=== PATIENT | female | born 1980 | race Caucasian/White ===

== ENCOUNTER 2021-03-02 23:01 | Emergency (ER) | payer OTHER ==
[~2021-03-02] VITALS: Ht 162.6 cm; Wt 84.3 kg
[~2021-03-02 23:01] MED LIST: CLINDAMYCIN HC300 MG PO; DICLOFENAC POTA50 MG PO; DOXYCYCLINE HY100 MG PO; ESTRADIOL2 MG PO; FUROSEMIDE20 MG PO; HYDROCODON-ACE1 EA10 PO; IBUPROFEN600 MG PO; IBUPROFEN800 MG PO; IRON325 M1 PO; MEDROXYPROGESTE10 MG PO; NAPROXEN500 MG PO; NORCO 5-325 TA1 EACH PO; PEPCID20 MG PO; PRENAISSANCE 91 EACH PO; PRILOSEC OTC20 MG PO; PRILOSEC40 MG PO; SULFAMETHOXAZO1 EAC1 PO; ULTRAM50 MG PO; VENTOLIN HFA18 GM INH
--- OUTSIDE RECORDS SUMMARY | 2021-03-02 23:08 | XMS ---
PreManage Notification: BRINA THAKKAR Security Circulator Events No recent Security Events currently on file CRITERIA MET - Group Notification CARE PROVIDERS There are no care providers on record at this time. Gabriele has no Care Guidelines for this patient. Puja VISIT COUNT (12 MO.) 1 [facility] TOTAL 1 NOTE: Visits indicate total known visits. ED/UCC VISIT TRACKING (12 MO.) 03/02/2021 23:02 [facility] [place] TYPE: Emergency COMPLAINT: - LOWER LT LEG SWELLING INPATIENT VISIT TRACKING (12 MO.) No inpatient visits to display in this time frame [id number]
[2021-03-02] MEDS ORDERED: METOPROLOL SUCC25 MG (23:22)
[2021-03-03] MEDS ORDERED: DOXYCYCLINE HY100 MG PO (00:34)
== END 2021-03-03 00:49 | disposition home or self-care (01) ==
LOC: ED 23:01
DX: L03.116 Cellulitis of left lower limb (principal); J45.909 Unspecified asthma, uncomplicated; F17.200 Nicotine dependence, unspecified, uncomplicated; Z79.899 Other long term (current) drug therapy; Z91.048 Other nonmedicinal substance allergy status
CPT/HCPCS: 99283

== ENCOUNTER 2021-04-03 00:03 | Emergency (ER) | payer OTHER ==
[~2021-04-03] VITALS: Ht 162.6 cm; Wt 84.8 kg
[~2021-04-03 00:03] MED LIST changes: +METOPROLOL SUCC25 MG
--- OUTSIDE RECORDS SUMMARY | 2021-04-03 00:10 | XMS ---
PreManage Notification: BRINA THAKKAR Security Electrician Second Events No recent Security Events currently on file CRITERIA MET - [facility] - Has Care Guidelines - Group Notification CARE PROVIDERS [facility] Internal Medicine 03/04/2021-Current PHONE: [phone] Gabriele has no Care Guidelines for this patient. Care History Medical/Surgical 03/04/2021 [facility] - Patient is currently established with [facility]. If patient is seen in the ED during business hours. Please contact CHWs at [facility]. Care Recommendation: If this patient has had 5 or more Emergency Department visits in the last 12 months.\T\nbsp; Patient will require education on the scope and purpose of the ED as an acute care provider not a Primary Care Provider and should not be utilized for chronic conditions.\T\nbsp; These are guidelines and the provider should exercise clinical judgment when providing care. 03/04/2021 [facility] Follow up visit with Dr. Douglas on 03/06/2021 E.Jen VISIT COUNT (12 MO.) 2 ALANA Duron TOTAL 2 NOTE: Visits indicate total known visits. ED/UCC VISIT TRACKING (12 MO.) 04/03/2021 00:04 [facility] [place] TYPE: Emergency COMPLAINT: - LEFT LEG PAIN 03/02/2021 23:02 [facility] [place] TYPE: Emergency COMPLAINT: - LOWER LT LEG SWELLING DIAGNOSES: - Other nonmedicinal substance allergy status - Unspecified asthma, uncomplicated - Nicotine dependence, unspecified, uncomplicated - Cellulitis of left lower limb - Other jail (current) drug therapy INPATIENT VISIT TRACKING (12 MO.) No inpatient visits to display in this time frame [id number]
== END 2021-04-03 00:28 | disposition home or self-care (01) ==
LOC: ED 00:03
DX: L03.116 Cellulitis of left lower limb (principal); K21.9 Gastro-esophageal reflux disease without esophagitis; J45.909 Unspecified asthma, uncomplicated; I10 Essential (primary) hypertension; F17.200 Nicotine dependence, unspecified, uncomplicated; Z91.048 Other nonmedicinal substance allergy status; Z79.899 Other long term (current) drug therapy
CPT/HCPCS: 99282

== ENCOUNTER 2022-03-28 23:07 | Emergency (ER) | payer OTHER ==
[~2022-03-28] VITALS: Ht 162.6 cm; Wt 79.2 kg
--- OUTSIDE RECORDS SUMMARY | 2022-03-28 23:14 | XMS ---
PreManage Notification: BRINA THAKKAR Security Marketing Secretary Events No recent Security Events currently on file CRITERIA MET - Group Notification - [facility] - Has Care Guidelines CARE PROVIDERS [facility] Internal Medicine 03/04/2021-Current PHONE: Unknown Gabriele has no Care Guidelines for this patient. Care History Medical/Surgical 04/06/2021 [facility] Patient was advised by PCP, Dr. Powell, to go to ER if he was not available. Patient stated Dr. Powell was out for a few days so she went to ER. Dr. Powell ordered abdominal ultrasound for 04/15/2021. 03/04/2021 [facility] - Patient is currently established with [facility]. If patient is seen in the ED during business hours. Please contact CHWs at [facility]. Care Recommendation: If this patient has had 5 or more Emergency Department visits in the last 12 months.\T\nbsp; Patient will require education on the scope and purpose of the ED as an acute care provider not a Primary Care Provider and should not be utilized for chronic conditions.\T\nbsp; These are guidelines and the provider should exercise clinical judgment when providing care. 03/04/2021 [facility] Follow up visit with Dr. Powell on 03/06/2021 E.DTimo VISIT COUNT (12 MO.) 2 ALANA Duron TOTAL 2 NOTE: Visits indicate total known visits. ED/UCC VISIT TRACKING (12 MO.) 03/28/2022 23:07 [facility] [place] TYPE: Emergency COMPLAINT: - ABD PAIN, NAUSEA 04/03/2021 00:04 [facility] TYPE: Emergency COMPLAINT: - LEFT LEG PAIN DIAGNOSES: - Gastro-esophageal reflux disease without esophagitis - Essential (primary) hypertension - Other nonmedicinal substance allergy status - Cellulitis of left lower limb - Other group home (current) drug therapy - Nicotine dependence, unspecified, uncomplicated - Unspecified asthma, uncomplicated INPATIENT VISIT TRACKING (12 MO.) No inpatient visits to display in this time frame [id number]
[2022-03-29] MEDS ORDERED: ONDANSETRON ODT8 MG PO (01:57)
[2022-03-29] MEDS ORDERED: PROTONIX40 MG PO (01:57)
[2022-03-29] MEDS ORDERED: HYDROCODON-ACE1 EA10 PO (01:57)
== END 2022-03-29 02:14 | disposition home or self-care (01) ==
LOC: ED 23:07
DX: R10.84 Generalized abdominal pain (principal); K21.9 Gastro-esophageal reflux disease without esophagitis; J45.909 Unspecified asthma, uncomplicated; I10 Essential (primary) hypertension; F17.200 Nicotine dependence, unspecified, uncomplicated; Z91.048 Other nonmedicinal substance allergy status; Z79.899 Other long term (current) drug therapy
CPT/HCPCS: 36415; 74177; 80053; 81001; 83690; 83735; 84703; 85025; 96375; 99284-25; A9270; J1170; J2405; J7030; Q9967

== ENCOUNTER 2022-12-22 22:47 | Emergency (ER) | payer OTHER ==
[~2022-12-22] VITALS: Ht 162.6 cm; Wt 81.7 kg
--- OUTSIDE RECORDS SUMMARY | ~2022-12-22 | XMS | Continuity of Care Document ---
Demographics + + + | Address | [address] | | | [place] [address] | + + + | Preferred Language | Unknown | + + + | Marital Status | | + + + | Congregational Affiliation | Unknown | + + + | Race | White | + + + | Ethnic Group | Not or | + + + Author + + + | Author | [facility] | + + + | Organization | [facility] | + + + | Address | [address] | | | [place] [address] | + + + | Phone | | + + + Care Team Providers + + + + | Care Line Decorator Name | Role | Phone | + + + + Unavailable | Unavailable | + + + + Unavailable | Unavailable | + + + + Allergies and Intolerances + + + + + + | date | description | facility | reaction | severity | + + + + + + | (no date) | Adhesive agent | [facility] | (no reaction) | (no severity) | | | [facility] | | | + + + + + + | (no date) | adhesive | [facility] | (no reaction) | (no severity) | + + + + + + | (no date) | Adhesive agent | [facility] | (no reaction) | (no severity) | | | | [facility] | | | + + + + + + Encounters No information. Functional Status No information. Immunizations No information. Medications + + + + | date | description | facility | + + + + | 2022-03-29 00:00 | MEDROXYPROGESTERONE | [facility] | | | ACETATE | | + + + + | 2015-12-31 00:00 | FAMOTIDINE | [facility] | + + + + | 2015-12-12 00:00 | DOXYCYCLINE HYCLATE | [facility] | + + + + | 2016-01-26 00:00 | DOXYCYCLINE HYCLATE | [facility] | + + + + | 2016-04-26 00:00 | DOXYCYCLINE HYCLATE | [facility] | + + + + | 2021-03-03 00:00 | DOXYCYCLINE HYCLATE | [facility] | + + + + | 2022-03-29 00:00 | ESTRADIOL | [facility] | + + + + | 2022-03-29 00:00 | IBUPROFEN | [facility] | + + + + | 2022-03-29 00:00 | IBUPROFEN | [facility] | + + + + | 2022-03-29 00:00 | NAPROXEN | [facility] | + + + + | 2022-03-29 00:00 | | [facility] | | | SULFAMETHOXAZOLE/TRIMETHOPR | | | | IM | | + + + + | 2022-03-29 00:00 | OMEPRAZOLE | [facility] | + + + + | 2022-03-29 00:00 | PANTOPRAZOLE SODIUM | [facility] | + + + + | 2022-03-29 00:00 | FERROUS SULFATE | [facility] | + + + + | 2022-03-29 00:00 | FUROSEMIDE | [facility] | + + + + | 2022-03-29 00:00 | ONDANSETRON | [facility] | + + + + | 2022-03-29 00:00 | OMEPRAZOLE MAGNESIUM | [facility] | + + + + | 2016-04-26 00:00 | TRAMADOL HCL | [facility] | + + + + | 2014-12-04 00:00 | HYDROCODONE | [facility] | | | BIT/ACETAMINOPHEN | | + + + + | 2022-03-29 00:00 | HYDROCODONE | [facility] | | | BIT/ACETAMINOPHEN | | + + + + | 2015-12-12 00:00 | HYDROCODONE | [facility] | | | BIT/ACETAMINOPHEN | | + + + + | 2015-12-16 00:00 | HYDROCODONE | [facility] | | | BIT/ACETAMINOPHEN | | + + + + | 2016-01-26 00:00 | HYDROCODONE | [facility] | | | BIT/ACETAMINOPHEN | | + + + + | 2022-03-29 00:00 | HYDROCODONE | [facility] | | | BIT/ACETAMINOPHEN | | + + + + Problems + + + + | date | description | facility | + + + + | 2014-12-01 00:00 | Sepsis | [facility] | + + + + | 2015-11-21 00:00 | Cat scratch of right lower | [facility] | | | leg | | + + + + | 2015-12-12 00:00 | Cellulitis of right lower | [facility] | | | extremity | | + + + + | 2015-12-31 00:00 | Gastritis | [facility] | + + + + | 2016-01-26 00:00 | Cellulitis of left lower | [facility] | | | extremity without foot | | + + + + | 2021-03-03 00:00 | Cellulitis of left lower | [facility] | | | leg | | + + + + | 2022-03-29 00:00 | Abdominal pain | [facility] | + + + + | 2022-11-23 09:00 | ENCNTR SCREEN MAMMOGRAM | [facility] | | | FOR MALIGNANT NE | | + + + + | 2022-11-23 09:05 | ENCNTR SCREEN MAMMOGRAM | [facility] | | | FOR MALIGNANT NE | | + + + + | 2022-11-23 09:05 | ENCNTR SCREEN MAMMOGRAM | [facility] | | | FOR MALIGNANT NEOPLASM OF | | | | BREAST | | + + + + Procedures No information. Results/Labs +--------+--------+ +---------+--------+---------+ | test | date | facility | value | unit | notes | +--------+--------+ +---------+--------+---------+ + + | Result panel 1 | + + + + + +--------+ + + | | 2022-03-28 | [facility] | 13.7 | (missing) | (missing) | | (unavailable | 23:25:08 | [facility] | | | | + + + +--------+ + + + + | Result panel 2 | + + + + + +--------+ + + | | 2022-03-28 | [facility] | 69.9 | (missing) | (missing) | | (unavailable | 23:25:08 | [facility] | | | | + + + +--------+ + + + + | Result panel 3 | + + + + + +--------+ + + | | 2022-03-28 | [facility] | 21.8 | (missing) | (missing) | | (unavailable | 23:25:08 | [facility] | | | | + + + +--------+ + + + + | Result panel 4 | + + + + + +-------+ + + | | 2022-03-28 | [facility] | 7.3 | (missing) | (missing) | | (unavailable | 23:25:08 | [facility] | | | | + + + +-------+ + + + + | Result panel 5 | + + + + + +-------+ + + | | 2022-03-28 | [facility] | 0.4 | (missing) | (missing) | | (unavailable | 23:25:08 | [facility] | | | | + + + +-------+ + + + + | Result panel 6 | + + + + + +-------+ + + | | 2022-03-28 | [facility] | 0.6 | (missing) | (missing) | | (unavailable | 23:25:08 | [facility] | | | | + + + +-------+ + + + + | Result panel 7 | + + + + + +--------+ + + | | 2022-03-28 | [facility] | 5.11 | (missing) | (missing) | | (unavailable | 23:25:08 | [facility] | | | | + + + +--------+ + + + + | Result panel 8 | + + + + + +--------+ + + | | 2022-03-28 | [facility] | 15.4 | (missing) | (missing) | | (unavailable | 23:25:08 | [facility] | | | | + + + +--------+ + + + + | Result panel 9 | + + + + + +-------+---------+ + | | 2022-03-28 | [facility] | 107 | mg/dL | (missing) | | (unavailable | 23:25:08 | [facility] | | | | + + + +-------+---------+ + + + | Result panel 10 | + + + + + +------+---------+ + | | 2022-03-28 | [facility] | 10 | mg/dL | (missing) | | (unavailable | 23:25:08 | [facility] | | | | + + + +------+---------+ + + + | Result panel 11 | + + + + + +--------+---------+ + | | 2022-03-28 | [facility] | 0.72 | mg/dL | (missing) | | (unavailable | 23:25:08 | [facility] | | | | + + + +--------+---------+ + + + | Result panel 12 | + + + + + +-------+ + + | | 2022-03-28 | [facility] | 106 | (missing) | (missing) | | (unavailable | 23:25:08 | [facility] | | | | + + + +-------+ + + + + | Result panel 13 | + + + + + +---------+ + + | | 2022-03-28 | [facility] | 13.88 | (missing) | (missing) | | (unavailable | 23:25:08 | [facility] | | | | + + + +---------+ + + + + | Result panel 14 | + + + + + +--------+ + + | | 2022-03-28 | [facility] | 46.6 | (missing) | (missing) | | (unavailable | 23:25:08 | [facility] | | | | + + + +--------+ + + + + | Result panel 15 | + + + + + +-------+ + + | | 2022-03-28 | [facility] | 131 | (missing) | (missing) | | (unavailable | 23::08 | [facility] | | | | + + + +-------+ + + + + | Result panel 16 | + + + + + +-------+ + + | | 2022-03-28 | [facility] | 3.9 | (missing) | (missing) | | (unavailable | 23:25:08 | [facility] | | | | + + + +-------+ + + + + | Result panel 17 | + + + + + +------+ + + | | 2022-03-28 | [facility] | 98 | (missing) | (missing) | | (unavailable | 23:25:08 | [facility] | | | | + + + +------+ + + + + | Result panel 18 | + + + + + +------+ + + | | 2022-03-28 | [facility] | 25 | (missing) | (missing) | | (unavailable | 23:25:08 | [facility] | | | | + + + +------+ + + + + | Result panel 19 | + + + + + +--------+ + + | | 2022-03-28 | [facility] | 11.9 | (missing) | (missing) | | (unavailable | 23:25:08 | [facility] | | | | + + + +--------+ + + + + | Result panel 20 | + + + + + +-------+---------+ + | | 2022-03-28 | [facility] | 9.5 | mg/dL | (missing) | | (unavailable | 23:25:08 | [facility] | | | | + + + +-------+---------+ + + + | Result panel 21 | + + + + + +-------+---------+ + | | 2022-03-28 | [facility] | 2.1 | mg/dL | (missing) | | (unavailable | 23::08 | [facility] | | | | + + + +-------+---------+ + + + | Result panel 22 | + + + + + +-------+ + + | | 2022-03-28 | [facility] | 8.1 | (missing) | (missing) | | (unavailable | 23:25:08 | [facility] | | | | + + + +-------+ + + + + | Result panel 23 | + + + + + +-------+ + + | | 2022-03-28 | [facility] | 3.4 | (missing) | (missing) | | (unavailable | ::08 | [facility] | | | | + + + +-------+ + + + + | Result panel 24 | + + + + + +-------+ + + | | 2022-03-28 | [facility] | 4.7 | (missing) | (missing) | | (unavailable | 23:25:08 | [facility] | | | | + + + +-------+ + + + + | Result panel 25 | + + + + + +--------+ + + | | 2022-03-28 | [facility] | 91.3 | (missing) | (missing) | | (unavailable | 23:25:08 | [facility] | | | | + + + +--------+ + + + + | Result panel 26 | + + + + + +--------+ + + | | 2022-03-28 | [facility] | 0.72 | (missing) | (missing) | | (unavailable | 23:25:08 | [facility] | | | | + + + +--------+ + + + + | Result panel 27 | + + + + + +-------+ + + | | 2022-03-28 | [facility] | 0.5 | (missing) | (missing) | | (unavailable | 23:25:08 | [facility] | | | | + + + +-------+ + + + + | Result panel 28 | + + + + + +------+ + + | | 2022-03-28 | [facility] | 24 | (missing) | (missing) | | (unavailable | 23:25:08 | [facility] | | | | + + + +------+ + + + + | Result panel 29 | + + + + + +------+ + + | | 2022-03-28 | [facility] | 19 | (missing) | (missing) | | (unavailable | 23:25:08 | [facility] | | | | + + + +------+ + + + + | Result panel 30 | + + + + + +-------+ + + | | 2022-03-28 | [facility] | 110 | (missing) | (missing) | | (unavailable | 23:25:08 | [facility] | | | | + + + +-------+ + + + + | Result panel 31 | + + + + + +------+ + + | | 2022-03-28 | [facility] | 75 | (missing) | (missing) | | (unavailable | 23:25:08 | [facility] | | | | + + + +------+ + + + + | Result panel 32 | + + + + + + + + + | | 2022-03-28 | [facility] | NEGATIVE | (missing) | (missing) | | (unavailable | 23:25:08 | [facility] | | | | + + + + + + + + + | Result panel 33 | + + + + + +--------+ + + | | 2022-03-28 | [facility] | 30.2 | (missing) | (missing) | | (unavailable | 23:25:08 | [facility] | | | | + + + +--------+ + + + + | Result panel 34 | + + + + + +--------+ + + | | 2022-03-28 | [facility] | 33.1 | (missing) | (missing) | | (unavailable | ::08 | [facility] | | | | + + + +--------+ + + + + | Result panel 35 | + + + + + +--------+ + + | | 2022-03-28 | [facility] | 13.9 | (missing) | (missing) | | (unavailable | 08 | [facility] | | | | + + + +--------+ + + + + | Result panel 36 | + + + + + +-------+ + + | | 2022-03-28 | [facility] | 482 | (missing) | (missing) | | (unavailable | 23:25:08 | [facility] | | | | + + + +-------+ + + + + | Result panel 37 | + + + + + + + + + | | 2022-03-28 | [facility] | YELLOW | (missing) | (missing) | | (unavailable | 23:30:08 | [facility] | | | | + + + + + + + + + | Result panel 38 | + + + + + +---------+ + + | | 2022-03-28 | [facility] | CLEAR | (missing) | (missing) | | (unavailable | 23:30:08 | [facility] | | | | + + + +---------+ + + + + | Result panel 39 | + + + + + + + + + | | 2022-03-28 | [facility] | NEGATIVE | (missing) | (missing) | | (unavailable | 23:30:08 | [facility] | | | | + + + + + + + + + | Result panel 40 | + + + + + + + + + | | 2022-03-28 | [facility] | POSITIVE | (missing) | (missing) | | (unavailable | 23:30:08 | [facility] | | | | + + + + + + + + + | Result panel 41 | + + + + + +---------+ + + | | 2022-03-28 | [facility] | TRACE | (missing) | (missing) | | (unavailable | 23:30:08 | [facility] | | | | + + + +---------+ + + + + | Result panel 42 | + + + + + + + + + | | 2022-03-28 | [facility] | >=1.030 | (missing) | (missing) | | (unavailable | 23:30:08 | [facility] | | | | + + + + + + + + + | Result panel 43 | + + + + + +---------+ + + | | 2022-03-28 | [facility] | SMALL | (missing) | (missing) | | (unavailable | 23:30:08 | [facility] | | | | + + + +---------+ + + + + | Result panel 44 | + + + + + +-------+ + + | | 2022-03-28 | [facility] | 5.5 | (missing) | (missing) | | (unavailable | 23:30:08 | [facility] | | | | + + + +-------+ + + + + | Result panel 45 | + + + + + + + + + | | 2022-03-28 | [facility] | NEGATIVE | (missing) | (missing) | | (unavailable | 23:30:08 | [facility] | | | | + + + + + + + + + | Result panel 46 | + + + + + + + + + | | 2022-03-28 | [facility] | NORMAL | (missing) | (missing) | | (unavailable | 23:30:08 | [facility] | | | | + + + + + + + + + | Result panel 47 | + + + + + + + + + | | 2022-03-28 | [facility] | NEGATIVE | (missing) | (missing) | | (unavailable | 23:30:08 | [facility] | | | | + + + + + + + + + | Result panel 48 | + + + + + + + + + | | 2022-03-28 | [facility] | NEGATIVE | (missing) | (missing) | | (unavailable | 23:30:08 | [facility] | | | | + + + + + + + + + | Result panel 49 | + + + + + +-------+ + + | | 2022-03-28 | [facility] | 2-3 | (missing) | (missing) | | (unavailable | 23:30:08 | [facility] | | | | + + + +-------+ + + + + | Result panel 50 | + + + + + +-------+ + + | | 2022-03-28 | [facility] | 0-1 | (missing) | (missing) | | (unavailable | 23:30:08 | [facility] | | | | + + + +-------+ + + + + | Result panel 51 | + + + + + + + + + | | 2022-03-28 | [facility] | NONE SEEN | (missing) | (missing) | | (unavailable | 23:30:08 | [facility] | | | | + + + + + + + + + | Result panel 52 | + + + + + + + + + | | 2022-03-28 | [facility] | NONE SEEN | (missing) | (missing) | | (unavailable | 23:30:08 | [facility] | | | | + + + + + + + + + | Result panel 53 | + + + + + +--------+ + + | | 2022-03-28 | [facility] | RARE | (missing) | (missing) | | (unavailable | 23:30:08 | [facility] | | | | + + + +--------+ + + + + | Result panel 54 | + + + + + + + + + | | 2022-03-28 | [facility] | NONE SEEN | (missing) | (missing) | | (unavailable | 23:30:08 | [facility] | | | | + + + + + + + + + | Result panel 55 | + + + + + +------+ + + | | 2022-03-28 | [facility] | No | (missing) | (missing) | | (unavailable | 23:30:08 | [facility] | | | | + + + +------+ + + + + | Result panel 56 | + + + + + + + + + | | 2022-03-28 | [facility] | CLEAN CATCH | (missing) | (missing) | | (unavailable | 23:30:08 | [facility] | | | | + + + + + + + Social History No information. Vital Signs + + + +---------+ | date | measurement | value | units | + + + +---------+ | 2022-03-28 00:00 | BMI | 30.0 | kg/m2 | + + + +---------+ | 2022-03-28 00:00 | height_metric | 162.56 | cm | + + + +---------+ | 2022-03-28 00:00 | height_standard | 64 | in | + + + +---------+ | 2022-03-28 00:00 | weight_metric | 79.2 | kg | + + + +---------+ | 2022-03-28 00:00 | weight_standard | 174.61 | lb | + + + +---------+ | 2022-03-29 00:00 | BP_diastolic | 93 | mmHg | + + + +---------+ | 2022-03-29 00:00 | BP_systolic | 149 | mmHg | + + + +---------+ | 2022-03-29 00:00 | heart_rate | 80 | /min | + + + +---------+ | 2022-03-29 00:00 | o2_saturation | 98 | % | + + + +---------+ | 2022-03-29 00:00 | respiration_rate | 18 | /min | + + + +---------+ | 2022-03-29 00:00 | temperature_metric | 36.56 | C | | | | | | + + + +---------+ | 2022-03-29 00:00 | | 97.8 | F | | | temperature_standar | | | | | d | | | + + + +---------+"
--- OUTSIDE RECORDS SUMMARY | ~2022-12-22 | XMS | Continuity of Care Document ---
Demographics + + + | Address | [address] | | | [place] [address] | + + + | Preferred Language | Unknown | + + + | Marital Status | | + + + | Shinto Affiliation | Unknown | + + + | Race | White | + + + | Ethnic Group | Not or | + + + Author + + + | Author | [facility] | + + + | Organization | [facility] | + + + | Address | [address] | | | [place] [address] | + + + | Phone | | + + + Care Team Providers + + + + | Care [employer] Accessory Installer Name | Role | Phone | + [...] + | 2022-03-29 00:00 | MEDROXYPROGESTERONE | [facility] | | | ACETATE | | + + + + | 2015-12-31 00:00 | FAMOTIDINE | [facility] | + + + + | 2015-12-12 00:00 | DOXYCYCLINE HYCLATE | [facility] | + + + + | 2016-01-26 00:00 | DOXYCYCLINE HYCLATE | [facility] | + + + + | 2016-04-26 00:00 | DOXYCYCLINE HYCLATE | [facility] | + + + + | 2021-03-03 00:00 | DOXYCYCLINE HYCLATE | [facility] | + + + + | 2022-03-29 00:00 | ESTRADIOL | [facility] | + + + + | 2022-03-29 00:00 | IBUPROFEN | [facility] | + + + + | 2022-03-29 00:00 | IBUPROFEN | [facility] | + + + + | 2022-03-29 00:00 | NAPROXEN | [facility] | + + + + | 2022-03-29 00:00 | | [facility] | | | SULFAMETHOXAZOLE/TRIMETHOPR | | | | IM | | + + + + | 2022-03-29 00:00 | OMEPRAZOLE | [facility] | + + + + | 2022-03-29 00:00 | PANTOPRAZOLE SODIUM | [facility] | + + + + | 2022-03-29 00:00 | FERROUS SULFATE | [facility] | + + + + | 2022-03-29 00:00 | FUROSEMIDE | [facility] | + + + + | 2022-03-29 00:00 | ONDANSETRON | [facility] | + + + + | 2022-03-29 00:00 | OMEPRAZOLE MAGNESIUM | [facility] | + + + + | 2016-04-26 00:00 | TRAMADOL HCL | [facility] | + + + + | 2014-12-04 00:00 | HYDROCODONE | [facility] | | | BIT/ACETAMINOPHEN | | + + + + | 2022-03-29 00:00 | HYDROCODONE | [facility] | | | BIT/ACETAMINOPHEN | | + + + + | 2015-12-12 00:00 | HYDROCODONE | [facility] | | | BIT/ACETAMINOPHEN | | + + + + | 2015-12-16 00:00 | HYDROCODONE | [facility] | | | BIT/ACETAMINOPHEN | | + + + + | 2016-01-26 00:00 | HYDROCODONE | [facility] | | | BIT/ACETAMINOPHEN | | + + + + | 2022-03-29 00:00 | HYDROCODONE | [facility] | | | BIT/ACETAMINOPHEN | | + + + + Problems + + + + | date | description | facility | + + + + | 2014-12-01 00:00 | Sepsis | [facility] | + + + + | 2015-11-21 00:00 | Cat scratch of right lower | [facility] | | | leg | | + + + + | 2015-12-12 00:00 | Cellulitis of right lower | [facility] | | | extremity | | + + + + | 2015-12-31 00:00 | Gastritis | [facility] | + + + + | 2016-01-26 00:00 | Cellulitis of left lower | [facility] | | | extremity without foot | | + + + + | 2021-03-03 00:00 | Cellulitis of left lower | [facility] | | | leg | | + + + + | 2022-03-29 00:00 | Abdominal pain | [facility] | + + + + | 2022-11-23 [...] (missing) | | (unavailable | 23:25:08 | [place] | | | | | ) | [...] (missing) | | (unavailable | 23:25:08 | [place] | | | | | ) | [...]
[~2022-12-22 22:47] MED LIST changes: +ONDANSETRON ODT8 MG PO; +PROTONIX40 MG PO
--- OUTSIDE RECORDS SUMMARY | 2022-12-22 22:51 | XMS ---
PreManage Notification: BRINA THAKKAR Security Personal Financial Advisor Events No recent Security Events currently on file CRITERIA MET - Group Notification CARE PROVIDERS [facility] Internal Medicine 03/04/2021-Current PHONE: Unknown -, [place]- Dentist: [facility] PHONE: [phone] Gabriele has no Care Guidelines for this patient. Care History Medical/Surgical 04/06/2021 [facility] Patient was advised by PCP, Dr. Powell, to go to ER if he was not available. Patient stated Dr. Powell was out for a few days so she went to ER. Dr. Powell ordered abdominal ultrasound for 04/15/2021. 03/04/2021 [facility] - Patient is currently established with [facility]. If patient is seen in the ED during business hours. Please contact CHWs at [facility]. Care Recommendation: If this patient has had 5 or more Emergency Department visits in the last 12 months.\T\nbsp; Patient will require education on the scope and purpose of the ED as an acute care provider not a Primary Care Provider and should not be utilized for chronic conditions.\T\nbsp; These are guidelines and the provider should exercise clinical judgment when providing care. 03/04/2021 [facility] Follow up visit with Dr. Powell on 03/06/2021 Puja VISIT COUNT (12 MO.) 2 [facility] Pinky TOTAL 2 NOTE: Visits indicate total known visits. ED/UCC VISIT TRACKING (12 MO.) [facility] COMPLAINT: - RT LEG SWELLING 03/28/2022 23:07 [facility] [place] TYPE: Emergency COMPLAINT: - ABD PAIN, NAUSEA DIAGNOSES: - Essential (primary) hypertension - Gastro-esophageal reflux disease without esophagitis - Generalized abdominal pain - Nicotine dependence, unspecified, uncomplicated - Other residential (current) drug therapy - Other nonmedicinal substance allergy status - Unspecified abdominal pain - Unspecified asthma, uncomplicated INPATIENT VISIT TRACKING (12 MO.) No inpatient visits to display in this time frame [id number]
[2022-12-22 23:27] LABS: BASOPHILS 0.4 % (0-2); EOSINOPHILS 0.9 % (0-6); HEMOGLOBIN 11.3 g/dL (12.0-18.0); LYMPHOCYTES 15.9 % (24-44); MCHC 32.4 g/dl (30-36); MCV 83.1 fl (81-99); MONOCYTES 8.3 % (0-12); NEUTROPHILS 74.5 % (39-80); PLATELET COUNT 370 K/uL (140-440); RBC 4.21 M/ul (4.3-5.7); RDW 14.3 (10.5-15.0)
[2022-12-22] MEDS ORDERED: DOXYCYCLINE HY100 MG PO (23:42)
[2022-12-22 23:44] LABS: ALBUMIN 2.7 g/dL (3.4-5.0); ALBUMIN/GLOBULIN RATIO 0.61 (1.1-2.4); ANION GAP 8.3 (7-21); BILIRUBIN, TOTAL 0.3 ng/dL (0.2-1.0); BUN/CREATININE RATIO 13.15 (6.0-28.6); CALCIUM 8.9 mg/dL (8.5-10.1); CREATININE, SERUM 0.76 mg/dL (0.55-1.02); POTASSIUM 3.3 mmol/L (3.5-5.1); PROTEIN, TOTAL 7.1 g/dL (6.4-8.2)
[2022-12-23 00:04] VITALS: BP 145/66
== END 2022-12-23 | disposition home or self-care (01) ==
LOC: ED 22:47
PROVIDERS: Internal Medicine
DX: L03.115 Cellulitis of right lower limb (principal); K21.9 Gastro-esophageal reflux disease without esophagitis; J45.909 Unspecified asthma, uncomplicated; I10 Essential (primary) hypertension; F17.200 Nicotine dependence, unspecified, uncomplicated; Z91.048 Other nonmedicinal substance allergy status; Z79.899 Other long term (current) drug therapy
CPT/HCPCS: 36415; 80053; 85025; 85379; 99283

== ENCOUNTER 2023-04-13 23:44 | Emergency (ER) | payer OTHER ==
[~2023-04-13] VITALS: Ht 162.6 cm; Wt 78.2 kg
[2023-04-14 01:36] VITALS: BP 154/80
== END 2023-04-14 01:41 | disposition home or self-care (01) ==
LOC: ED 23:44
DX: J02.8 Acute pharyngitis due to other specified organisms (principal); F17.200 Nicotine dependence, unspecified, uncomplicated; Z91.09 Other allergy status, other than to drugs and biological substances; Z79.899 Other long term (current) drug therapy
CPT/HCPCS: 87651; 99283; A9270

== ENCOUNTER 2024-08-16 20:17 | Emergency (ER) | payer OTHER ==
[~2024-08-16] VITALS: Ht 162.6 cm; Wt 72.5 kg
[2024-08-16] MEDS ORDERED: methylPREDNISolone SOD SUCC 125 MG/2 ML VIAL IV ONE (20:30)
[2024-08-16] MEDS ORDERED: ALBUTEROL/IPRATROPIUM 3 ML NEB INH ONE (20:30)
[2024-08-16] MEDS ORDERED: VENTOLIN HFA18 GM INH (20:33)
[2024-08-16 21:05] LABS: HEMATOCRIT 23.2 % (35.0-50.0); HEMOGLOBIN 6.8 g/dL (12.0-18.0); MCH 16.8 (27-36); MCHC 29.3 g/dl (30-36); MCV 57.5 fl (81-99); PLATELET COUNT 418 K/uL (140-440); RBC 4.03 M/ul (4.3-5.7); RDW 20.8 (10.5-15.0)
[2024-08-16 21:24] LABS: EOSINOPHILS, MANUAL DIFF 1; LYMPHOCYTES, MANUAL DIFF 19; NEUTROPHILS, MANUAL DIFF 80
[2024-08-16 21:25] LABS: ALBUMIN 2.9 g/dL (3.4-5.0); ALBUMIN/GLOBULIN RATIO 0.78 (1.1-2.4); ANION GAP 11.3 (7-21); BILIRUBIN, TOTAL 0.6 mg/dL (0.2-1.0); BUN/CREATININE RATIO 10.81 (6.0-28.6); CALCIUM 8.5 mg/dL (8.5-10.1); CREATININE, SERUM 0.74 mg/dL (0.55-1.02); POTASSIUM 3.3 mmol/L (3.5-5.1); PROTEIN, TOTAL 6.6 g/dL (6.4-8.2)
[2024-08-16 22:02] LABS: ABO O; RH POSITIVE
[2024-08-16 22:46] LABS: ABO O; ANTIBODY SCREEN NEGATIVE; RH POSITIVE
[2024-08-16 22:47] LABS: IS CROSSMATCH COMPATIBLE
[2024-08-16] MEDS ORDERED: LIDOCAINE 2% VISCOUS 6 ML SYR TOP ONE (23:45)
[2024-08-17] MEDS ORDERED: FUROSEMIDE 20 MG/2 ML VIAL IV ONE (01:00)
[2024-08-17] MEDS ORDERED: COLACE100 MG PO (01:28)
[2024-08-17] MEDS ORDERED: VITAMIN C500 M1 PO (01:28)
[2024-08-17] MEDS ORDERED: FERROUS SULFAT325 M2 PO (01:28)
[2024-08-17] MEDS ORDERED: ALBUTEROL2.5 MG/3 M INH (02:37)
[2024-08-17] MEDS ORDERED: INHALER, ASSIST DEVICES 1 EACH SPACER MISC ONE (02:45)
[2024-08-17] MEDS ORDERED: ALBUTEROL SULFATE 8 GM HOME.PACK INH ONE (02:45)
[2024-08-17] MEDS ORDERED: methylPREDNISolone 4 MG HOME.PACK PO ONE (02:45)
[2024-08-17] MEDS ORDERED: ALBUTEROL SULFATE 0.083% 3 ML HOME.PACK INH PRN (02:45)
[2024-08-17 03:00] VITALS: BP 147/78
== END 2024-08-17 03:00 | disposition home or self-care (01) ==
LOC: ED 20:17
PROVIDERS: Family Medicine
DX: D50.9 Iron deficiency anemia, unspecified (principal); N92.0 Excessive and frequent menstruation with regular cycle; J45.909 Unspecified asthma, uncomplicated; K21.9 Gastro-esophageal reflux disease without esophagitis; I10 Essential (primary) hypertension; F17.200 Nicotine dependence, unspecified, uncomplicated; Z91.048 Other nonmedicinal substance allergy status
CPT/HCPCS: 36415; 36430; 51702; 71045; 80053; 83880; 85025; 86850; 86900; 86901; 86922; 94640; 94664; 99285-25; J1938; J2919; P9016

== ENCOUNTER 2024-08-19 16:26 | Inpatient (IN) | payer OTHER ==
[~2024-08-19] VITALS: Ht 162.6 cm; Wt 67.5 kg
[~2024-08-19 16:26] MED LIST changes: +ALBUTEROL2.5 MG/3 M INH; +COLACE100 MG PO; +FERROUS SULFAT325 M2 PO; +VITAMIN C500 M1 PO
[2024-08-19] MEDS ORDERED: ALBUTEROL/IPRATROPIUM 3 ML NEB INH PRN (17:00)
[2024-08-19 17:10] LABS: BASOPHILS 0.3 % (0-2); EOSINOPHILS 0.1 % (0-6); HEMOGLOBIN 9.1 g/dL (12.0-18.0); LYMPHOCYTES 9.4 % (24-44); MCH 19.2 (27-36); MCHC 30.4 g/dl (30-36); MCV 63.2 fl (81-99); MONOCYTES 4.4 % (0-12); NEUTROPHILS 85.8 % (39-80); PLATELET COUNT 448 K/uL (140-440); RBC 4.75 M/ul (4.3-5.7); RDW 28.9 (10.5-15.0)
[2024-08-19 17:28] LABS: ALBUMIN 2.7 g/dL (3.4-5.0); ALBUMIN/GLOBULIN RATIO 0.73 (1.1-2.4); ANION GAP 9.2 (7-21); BILIRUBIN, TOTAL 0.5 mg/dL (0.2-1.0); BUN/CREATININE RATIO 11.42 (6.0-28.6); CALCIUM 8.5 mg/dL (8.5-10.1); CREATININE, SERUM 0.7 mg/dL (0.55-1.02); MAGNESIUM 1.7 mg/dL (1.8-2.4); POTASSIUM 3.2 mmol/L (3.5-5.1); PROTEIN, TOTAL 6.4 g/dL (6.4-8.2)
[2024-08-19] MEDS ORDERED: AZITHROMYCIN 250 MG TAB PO ONE (19:45)
[2024-08-19 20:27] LABS: INFLUENZA B NAA NEGATIVE (NEGATIVE); RESPIRATORY SYNCYTIAL VIR NAA NEGATIVE (NEGATIVE)
[2024-08-19] MEDS ORDERED: FUROSEMIDE 40 MG/4 ML VIAL IV ONE (21:30)
[2024-08-19] MEDS ORDERED: POTASSIUM CHLORIDE 10 MEQ TABCR PO ONE (21:30)
[2024-08-19] MEDS ORDERED: ALBUTEROL/IPRATROPIUM 3 ML NEB INH ONE (21:30)
[2024-08-19] MEDS ORDERED: DEXAMETHASONE SOD PHOS 10 MG/ML VIAL IV ONE (21:30)
[2024-08-19] MEDS ORDERED: CEFTRIAXONE SODIUM 2 GM in SODIUM CHLORIDE 0.9% 100 ML IV ONE (21:45)
[2024-08-19] MEDS ORDERED: ACETAMINOPHEN 325 MG TAB PO PRN (22:15)
[2024-08-19] MEDS ORDERED: ondansetron HCL 4 MG/2 ML VIAL IV PRN (22:15)
[2024-08-19 22:21] LABS: LACTIC ACID, BLOOD 1.4 mmol/L (0.4-2.0)
[2024-08-19 22:40] VITALS: BP 103/74
[2024-08-19 22:42] VITALS: BP 103/74
[2024-08-20] VITALS (8 sets, daily range): BP systolic 115–152; BP diastolic 55–73
[2024-08-20 05:54] LABS: HEMATOCRIT 31.8 % (35.0-50.0); HEMOGLOBIN 9.8 g/dL (12.0-18.0); MCH 19.5 (27-36); MCHC 30.9 g/dl (30-36); MCV 63.2 fl (81-99); PLATELET COUNT 507 K/uL (140-440); RBC 5.03 M/ul (4.3-5.7); RDW 29.8 (10.5-15.0)
[2024-08-20 06:08] LABS: ALBUMIN 3.1 g/dL (3.4-5.0); ALBUMIN/GLOBULIN RATIO 0.74 (1.1-2.4); ANION GAP 10.3 (7-21); BILIRUBIN, TOTAL 0.5 mg/dL (0.2-1.0); BUN/CREATININE RATIO 14.51 (6.0-28.6); CALCIUM 9.3 mg/dL (8.5-10.1); CREATININE, SERUM 0.62 mg/dL (0.55-1.02); MAGNESIUM 2.1 mg/dL (1.8-2.4); POTASSIUM 4.3 mmol/L (3.5-5.1); PROTEIN, TOTAL 7.3 g/dL (6.4-8.2)
[2024-08-20 06:13] LABS: LYMPHOCYTES, MANUAL DIFF 5; NEUTROPHILS, MANUAL DIFF 95
[2024-08-20] MEDS ORDERED: ALBUTEROL/IPRATROPIUM 3 ML NEB INH SCH (08:00)
[2024-08-20] MEDS ORDERED: OMEPRAZOLE20 MG PO (08:11)
[2024-08-20] MEDS ORDERED: NICOTINE 21 MG/24 HR 1 EA TDSY TD SCH (11:10)
[2024-08-20] MEDS ORDERED: ENOXAPARIN SODIUM 40 MG/0.4 ML SYR SUB-Q SCH (11:10)
[2024-08-20] MEDS ORDERED: PANTOPRAZOLE SODIUM 40 MG TABEC PO SCH (11:10)
[2024-08-20] MEDS ORDERED: predniSONE 20 MG TAB PO SCH (11:13)
[2024-08-20] MEDS ORDERED: AZITHROMYCIN 250 MG TAB PO SCH (11:13)
[2024-08-20] MEDS ORDERED: CEFTRIAXONE SODIUM 2 GM in SODIUM CHLORIDE 0.9% 100 ML IV SCH (11:15)
[2024-08-20] MEDS ORDERED: bisacodyL 10 MG SUPP PR PRN (11:15)
[2024-08-20] MEDS ORDERED: ACETAMINOPHEN 325 MG TAB PO PRN (11:15)
[2024-08-20] MEDS ORDERED: NICOTINE POLACRILEX 4 MG LOZENGE BUCCAL PRN (11:15)
[2024-08-20] MEDS ORDERED: ondansetron HCL 4 MG/2 ML VIAL IV PRN (11:15)
[2024-08-20] MEDS ORDERED: PHARMACY RENAL DOSE ADJUSTMENT 1 DOSE MISC PO SCH (12:00)
--- NOTE | 2024-08-20 20:11 | EKG ---
[facility] [address] [facility] [place] [address] Signed Normal sinus rhythm Possible Left atrial enlargement Minimal voltage criteria for LVH, may be normal variant ( Sokolow-Duran ) Anterior infarct , age undetermined Abnormal ECG When compared with ECG of 15-FEB-2016 16:20, Anterior infarct is now present Confirmed by Jhony Brown DO ([id number]) on 08/20/2024 8:11:24 PM Electronically Signed By: JHONY BROWN DO 08/20/242010 PATIENT NAME: BRINA THAKKAR Electrocardiogram DATE OF : 78 PHYSICIAN: JHONY BROWN DO REPORT #: [id number] REPORT IS CONFIDENTIAL AND NOT TO BE RELEASED WITHOUT AUTHORIZATION
[2024-08-20] MEDS ORDERED: MELATONIN 3 MG TAB PO PRN (21:00)
[2024-08-21] VITALS (9 sets, daily range): BP systolic 100–1147; BP diastolic 50–64
[2024-08-21 05:17] LABS: ERYTHROPOIETIN 87 mU/mL (4-27)
[2024-08-21 05:25] LABS: BASOPHILS 0.2 % (0-2); HEMATOCRIT 30.8 % (35.0-50.0); HEMOGLOBIN 9.3 g/dL (12.0-18.0); LYMPHOCYTES 13.4 % (24-44); MCH 19.1 (27-36); MCHC 30.2 g/dl (30-36); MCV 63.2 fl (81-99); MONOCYTES 6.6 % (0-12); NEUTROPHILS 79.8 % (39-80); PLATELET COUNT 541 K/uL (140-440); RBC 4.86 M/ul (4.3-5.7); RDW 28.5 (10.5-15.0)
[2024-08-21 05:46] LABS: ALBUMIN 2.7 g/dL (3.4-5.0); ALBUMIN/GLOBULIN RATIO 0.73 (1.1-2.4); ANION GAP 8.1 (7-21); BILIRUBIN, TOTAL 0.4 mg/dL (0.2-1.0); BUN/CREATININE RATIO 21.87 (6.0-28.6); CALCIUM 9.1 mg/dL (8.5-10.1); CREATININE, SERUM 0.64 mg/dL (0.55-1.02); MAGNESIUM 2.1 mg/dL (1.8-2.4); POTASSIUM 4.1 mmol/L (3.5-5.1); PROTEIN, TOTAL 6.4 g/dL (6.4-8.2)
[2024-08-21 08:46] LABS: IRON BINDING CAPACITY TOTAL 360 ug/dL (240-450); IRON,SERUM OR PLASMA 14 ug/dL (28-170); TRANSFERRIN SATURATION 4 %sat (20-50)
[2024-08-21] MEDS ORDERED: FUROSEMIDE 20 MG/2 ML VIAL IV ONE (11:00)
[2024-08-22 05:29] LABS: BASOPHILS 0.5 % (0-2); EOSINOPHILS 0.2 % (0-6); HEMATOCRIT 28.7 % (35.0-50.0); HEMOGLOBIN 8.9 g/dL (12.0-18.0); LYMPHOCYTES 28.2 % (24-44); MCH 19.7 (27-36); MCV 63.5 fl (81-99); MONOCYTES 8.9 % (0-12); NEUTROPHILS 62.2 % (39-80); PLATELET COUNT 504 K/uL (140-440); RBC 4.52 M/ul (4.3-5.7); RDW 29.8 (10.5-15.0)
[2024-08-22 05:45] LABS: ALBUMIN 2.6 g/dL (3.4-5.0); ALBUMIN/GLOBULIN RATIO 0.76 (1.1-2.4); ANION GAP 7.1 (7-21); BILIRUBIN, TOTAL 0.4 mg/dL (0.2-1.0); BUN/CREATININE RATIO 28.12 (6.0-28.6); CALCIUM 8.7 mg/dL (8.5-10.1); CREATININE, SERUM 0.64 mg/dL (0.55-1.02); MAGNESIUM 1.9 mg/dL (1.8-2.4); POTASSIUM 4.1 mmol/L (3.5-5.1)
[2024-08-22 05:52] VITALS: BP 134/57
[2024-08-22 06:11] VITALS: BP 134/57
[2024-08-22] MEDS ORDERED: SODIUM CHLORIDE 0.9% IV ONE (07:45)
[2024-08-22] MEDS ORDERED: FERUMOXYTOL IV ONE (07:45)
[2024-08-22 10:01] VITALS: BP 110/48
[2024-08-22 10:11] VITALS: BP 110/48
[2024-08-22] MEDS ORDERED: PREDNISONE20 MG PO (12:15)
[2024-08-22] MEDS ORDERED: CEFDINIR300 MG PO (12:16)
[2024-08-22] MEDS ORDERED: DULERA 50 MCG-513 GM INH (12:17)
== END 2024-08-22 13:55 | disposition home or self-care (01) | DRG 811 ==
LOC: ED 16:26 → MS 16:28
PROVIDERS: Emergency Medicine; Internal Medicine; ADMIT Student in an Organized Health Care Education/Training Program; ATTEND Student in an Organized Health Care Education/Training Program
DX: D50.9 Iron deficiency anemia, unspecified (principal); J96.01 Acute respiratory failure with hypoxia; J44.1 Chronic obstructive pulmonary disease with (acute) exacerbation; I11.0 Hypertensive heart disease with heart failure; D56.1 Beta thalassemia; K21.9 Gastro-esophageal reflux disease without esophagitis; J45.909 Unspecified asthma, uncomplicated; F17.210 Nicotine dependence, cigarettes, uncomplicated; F12.90 Cannabis use, unspecified, uncomplicated; I50.9 Heart failure, unspecified; D72.829 Elevated white blood cell count, unspecified; D75.839 Thrombocytosis, unspecified; D72.0 Genetic anomalies of leukocytes; K42.9 Umbilical hernia without obstruction or gangrene; R13.10 Dysphagia, unspecified; Z98.890 Other specified postprocedural states; Z90.89 Acquired absence of other organs; Z98.51 Tubal ligation status; Z91.048 Other nonmedicinal substance allergy status; Z79.899 Other long term (current) drug therapy; Z79.51 Long term (current) use of inhaled steroids
CPT/HCPCS: 36415; 70491; 71045; 71260; 74160; 74230; 80053; 82668; 82728; 83550; 83605; 83735; 83880; 84484; 84703; 85025; 85060; 85379; 86140; 87502; 92526; 92610; 92611; 93005; 93010; 93306; 94640; 94667; 94668; 94760; 94761; 94762; 99285-25; 99406; A9270; J0696; J1100; J1650; J1938; J7512; Q0138; Q9967; U0002

== ENCOUNTER 2024-09-24 12:31 | Day surgery (SDC) | payer OTHER ==
[~2024-09-24] VITALS: Ht 162.6 cm; Wt 70.9 kg
[~2024-09-24 12:31] MED LIST changes: +CEFDINIR300 MG PO; +DULERA 50 MCG-513 GM INH; +IBLOOD GLUCOSE TEST STRIP 1 EA TEST VI PRN; +LACTATED RINGER'S 1,000 ML IV SCH; +LIDOCAINE HCL 1% 5 ML SDV INJ ONE; +LIDOCAINE HCL 4% 50 ML BTL TOP SCH; +MIDAZOLAM HCL 5 MG/5 ML VIAL IV PRN; +OMEPRAZOLE20 MG PO; +PREDNISONE20 MG PO; +fentaNYL citrate 100 MCG/2 ML VIAL IV PRN
[2024-09-24 12:48] VITALS: BP 186/88
[2024-09-24] MEDS ORDERED: fentaNYL citrate 100 MCG/2 ML VIAL ONE (13:34)
[2024-09-24] MEDS ORDERED: MIDAZOLAM HCL 5 MG/5 ML VIAL ONE (13:34)
--- NOTE | 2024-09-24 14:28 | NUR ---
09/24/24 1428 Lauren Hatch PATIENT'S OXYGEN SATURATION 100% ON 3L VIA NC. OXYGEN TURNED OFF AT THIS TIME. SNORING RESPIRATIONS HEARD.
[2024-09-24 15:16] VITALS: BP 178/72
--- NOTE | 2024-09-25 09:59 | OR ---
[facility] [address] [place], [place] [address] Signed DATE OF OPERATION: 09/24/2024 SURGEON: Tobin Garner MD PREOPERATIVE DIAGNOSIS: Longstanding cervical dysphagia. POSTOPERATIVE DIAGNOSES: No evidence of distinct stricture or evidence of eosinophilic esophagitis; moderate-size hiatal hernia. PROCEDURE PERFORMED: Esophagogastroduodenoscopy with biopsy. ANESTHESIA: Intravenous sedation, fentanyl 100 mcg, Versed 4 mg. INDICATION: This 44-year-old woman is a patient of Jennifer Pope MD. She has had 10 years of increasing "choking" when she tries to swallow food. This has been going on probably up to 10 years overall. She was admitted to the hospital on August 20 with shortness of breath and exacerbation of COPD. At that time, she is anemic with a hemoglobin of 6.8, prompting blood transfusion. She was likely anemic related to menorrhagia issues. She continues to smoke, though she does have COPD/asthma type problems. A CT angiogram of the chest was performed showing no evidence of embolism or pneumonia. It was considered possibility of a mesenteric shunt based on anatomy. The patient did undergo an upper GI for cervical dysphagia performed on August 21, 2024 showing a prolonged oral phase; pharyngeal phase, well maintained; and some retrograde flow within the upper esophagus below the upper esophageal sphincter. There is no actual web or stricture. She is admitted at this time to undergo upper endoscopy to assess for stricture or other anatomic findings that would account for cervical dysphagia. FINDINGS: There is no lesion to account for the dysphagia. Certainly, no stricture or neoplasm. There was a large hiatal hernia associated. The stomach and duodenum were essentially normal. CLOtest was negative 15 minutes post procedure. DESCRIPTION OF PROCEDURE: Electronically Signed By: TOBIN GARNER MD 09/25/24 0959 PATIENT NAME: BRINA THAKKAR OPERATIVE REPORT DATE OF : [birth year] REPORT #: [id number] PHYSICIAN: TOBIN GARNER MD PCP: JENNIFER POPE MD REPORT IS CONFIDENTIAL AND NOT TO BE RELEASED WITHOUT AUTHORIZATION [facility] [address] [place], [place] [address] Signed The patient was brought to the endoscopy suite and placed in lateral decubitus position, given intravenous sedation to the point of slurred speech and nystagmus. Full cardiopulmonary monitoring was maintained. A bite block was placed. An Olympus video upper endoscope was passed in the hypopharynx. The vocal cords appeared normal. The scope was advanced to the esophagus with minor delay in the most proximal esophagus, but ultimately into the esophagus without problem, past the stomach. The stomach and duodenum appeared normal except for a hiatal hernia on retroflexed view. Biopsies taken of the duodenum and the antrum for both EITAN and pathologic testing. The scope was withdrawn to the distal esophagus. There was no evidence of actual stricture or even inflammation, and certainly, no Alcaraz epithelium. Biopsies were obtained. Scope was withdrawn, and biopsies were taken of the midesophagus to assess for eosinophilic esophagitis and in the most proximal esophagus as well. There was a scrape in the most proximal aspect of the esophagus as it joins hypopharynx upon passage of the scope. There did not appear to be an actual stricture in the area however. The patient was taken to the recovery room in good condition. CONCLUDING DIAGNOSIS: No actual definite stricture. We will review her pathology reports particularly to assess for occult eosinophilic esophagitis, which certainly can manifest as dysphagia. My review of her upper GI does not show any particular finding of note in the proximal esophagus that would account for cervical dysphagia. A barium study that was performed on August 21 was done primarily to rule out aspiration and assess for swallowing safety. The pharyngeal phase was maintained and all trial boluses were cleared, it is noted. I would recommend she continue with her PPI medication daily. She should absolutely stop smoking. She will return to the ongoing care of her primary provider, Jennifer Pope. Tobin Garner MD JM/MODL /[id number] cc: Jennifer Pope Electronically Signed By: TOBIN GARNER MD 09/25/24 0959 PATIENT NAME: BRINA THAKKAR OPERATIVE REPORT DATE OF : 78 REPORT #: [id number] PHYSICIAN: TOBIN GARNER MD PCP: JENNIFER POPE MD REPORT IS CONFIDENTIAL AND NOT TO BE RELEASED WITHOUT AUTHORIZATION [facility] [address] [facility] [place] [address] Signed Copies: ~ Electronically Signed By: TOBIN GARNER MD 09/25/24 0959 PATIENT NAME: BRINA THAKKARLAKEKAVITA OPERATIVE REPORT DATE OF : 78 REPORT #: [id number] PHYSICIAN: TOBIN GARNER MD PCP: JENNIFER POPE MD REPORT IS CONFIDENTIAL AND NOT TO BE RELEASED WITHOUT AUTHORIZATION
--- NOTE | 2024-09-26 14:09 | PATH ---
[facility] [address] [place], [place] [address] Signed SPECIMEN(S): A DUODENAL BIOPSY SPECIMEN(S): B ANTRUM BIOPSY SPECIMEN(S): C LOWER ESOPHAGEAL BIOPSY SPECIMEN(S): D MIDDLE ESOPHAGEAL BIOPSY SPECIMEN(S): E UPPER ESOPHAGEAL BIOPSY SPECIMEN SOURCE: A. DUODENAL BIOPSY B. ANTRUM BIOPSY C. LOWER ESOPHAGEAL BIOPSY D. MIDDLE ESOPHAGEAL BIOPSY E. UPPER ESOPHAGEAL BIOPSY CLINICAL HISTORY: GERD, esophageal web, cervical dysphagia, hiatal hernia, mild proximal inflammation FINAL PATHOLOGIC DIAGNOSIS: A. Duodenum, biopsy: - Small bowel mucosa with intact villous architecture. - Negative for intraepithelial lymphocytosis, parasites, or malignancy. B. Antrum, biopsy: - Minimal nonspecific chronic gastritis. - Negative for Helicobacter pylori by HE. - Negative for intestinal metaplasia, dysplasia, or malignancy. C. Lower esophagus, biopsies: - Gastric cardia and squamous mucosa with mild reflux-associated change and focal goblet cell metaplasia. - Negative for dysplasia or malignancy. - See Comment. D. Middle esophagus, biopsies: - Fragments of superficial squamous mucosa with no significant histopathologic changes. - Negative for eosinophilic esophagitis, dysplasia, or malignancy. E. Upper esophagus, biopsies: - Fragments of superficial squamous mucosa with no significant histopathologic changes. - Negative for eosinophilic esophagitis, dysplasia, or malignancy. COMMENT: Part C) If the biopsy is derived from endoscopically abnormal mucosa in the PATIENT NAME: MAYKEL MURRAYLizzy GARNER PATHOLOGY DATE OF : 78 REPORT #: [id number] PHYSICIAN: [facility] PCP: ANGELIA POPE MD REPORT IS CONFIDENTIAL AND NOT TO BE RELEASED WITHOUT AUTHORIZATION [facility] [address] [place], [place] [address] Signed tubular esophagus, then the findings meet the ACG Diagnostic Criteria for Alcaraz's esophagus. Otherwise, this is considered intestinal metaplasia at the gastroesophageal junction. Clinical and endoscopic correlation is recommended. DWS:smn MICROSCOPIC EXAMINATION: Histologic sections of all submitted blocks are examined by light microscopy. These findings, together with the gross examination, support the pathologic diagnosis. GROSS DESCRIPTION: A. The specimen, labeled and designated "Murray, duodenal biopsy," is received in formalin and consists of two osborn soft tissue fragments, ranging from 0.2-0.9 cm. Entirely submitted in (A1). B. The specimen, labeled and designated "Murray, antrum biopsy," is received in formalin and consists of two osborn soft tissue fragments, ranging from 0.4-0.6 cm. Entirely submitted in (B1). C. The specimen, labeled and designated "Murray, lower esophageal biopsy," is received in formalin and consists of two osborn soft tissue fragments, ranging from 0.1-0.6 cm. Entirely submitted in (C1). D. The specimen, labeled and designated "Murray, middle esophageal biopsy," is received in formalin and consists of four osborn soft tissue fragments, ranging from 0.2-0.4 cm. Entirely submitted in (D1). E. The specimen, labeled and designated "Murray, upper esophageal biopsy," is received in formalin and consists of two osborn soft tissue fragments, ranging from 0.3-0.6 cm. Entirely submitted in (E1). VB (under the direct supervision of a pathologist) The Gross Description was prepared using a voice recognition system. The report was reviewed for accuracy; however, sound-alike word errors, addition and/or deletions may occur. If there is any question about this report, please contact Client Services. PERFORMING LABORATORY: Technical component was performed by [facility], [facility] [place] [address] (CLIA# [id number]). Professional interpretation was performed by [facility], [address] [facility] [place] [address] (CLIA#: [id number]). Diagnostician: He Cain MD Pathologist PATIENT NAME: BRINA MURRAY PATHOLOGY DATE OF : [birth year] REPORT #: [id number] PHYSICIAN: [facility] PATHOLOG[facility] PCP: ANGELIA POPE MD REPORT IS CONFIDENTIAL AND NOT TO BE RELEASED WITHOUT AUTHORIZATION [facility] [address] [place], [place] [address] Signed Electronically Signed 09/26/2024 Copies: ~ PATIENT NAME: BRINA MURRAY PATHOLOGY DATE OF : [birth year] REPORT #: [id number] PHYSICIAN: PASTORA HUNTLEY PCP: ANGELIA POPE MD REPORT IS CONFIDENTIAL AND NOT TO BE RELEASED WITHOUT AUTHORIZATION
== END 2024-09-24 15:25 | disposition home or self-care (01) ==
LOC: DS 12:31
PROVIDERS: ATTEND Surgery
PROC: 0DB68ZX Excision of Stomach, Via Natural or Artificial Opening Endoscopic, Diagnostic (ICD-10-PCS; 2024-09-24)
PROC: 0DB18ZX Excision of Upper Esophagus, Via Natural or Artificial Opening Endoscopic, Diagnostic (ICD-10-PCS; 2024-09-24)
PROC: 0DB28ZX Excision of Middle Esophagus, Via Natural or Artificial Opening Endoscopic, Diagnostic (ICD-10-PCS; 2024-09-24)
PROC: 0DB38ZX Excision of Lower Esophagus, Via Natural or Artificial Opening Endoscopic, Diagnostic (ICD-10-PCS; 2024-09-24)
PROC: 0DB98ZX Excision of Duodenum, Via Natural or Artificial Opening Endoscopic, Diagnostic (ICD-10-PCS; principal; 2024-09-24 13:30)
DX: K29.50 Unspecified chronic gastritis without bleeding (principal); K44.9 Diaphragmatic hernia without obstruction or gangrene; F17.210 Nicotine dependence, cigarettes, uncomplicated; Z87.09 Personal history of other diseases of the respiratory system
CPT/HCPCS: 84703; 88305; 99153; G0500; J2250; J3010; J7121

== ENCOUNTER 2024-12-05 06:08 | Day surgery (SDC) | payer OTHER ==
[~2024-12-05] VITALS: Ht 162.6 cm; Wt 70.5 kg
[~2024-12-05 06:08] MED LIST changes: -IBLOOD GLUCOSE TEST STRIP 1 EA TEST VI PRN; -LIDOCAINE HCL 1% 5 ML SDV INJ ONE; -LIDOCAINE HCL 4% 50 ML BTL TOP SCH; -MIDAZOLAM HCL 5 MG/5 ML VIAL IV PRN; -fentaNYL citrate 100 MCG/2 ML VIAL IV PRN
[2024-12-05 06:24] VITALS: BP 123/64
[2024-12-05] MEDS ORDERED: IBLOOD GLUCOSE TEST STRIP 1 EA TEST VI PRN ×2 (07:00→08:00)
[2024-12-05] MEDS ORDERED: LIDOCAINE HCL 1% 5 ML SDV INJ ONE (07:00)
[2024-12-05] MEDS ORDERED: CEFAZOLIN SODIUM 2 GM/20 ML SYR IV SCH (07:00)
[2024-12-05] MEDS ORDERED: LIDOCAINE HCL 2% 5 ML SDV ONE (07:15)
[2024-12-05] MEDS ORDERED: MIDAZOLAM HCL 2 MG/2 ML VIAL ONE (07:15)
[2024-12-05] MEDS ORDERED: fentaNYL citrate 100 MCG/2 ML VIAL ONE (07:15)
[2024-12-05] MEDS ORDERED: ACETAMINOPHEN 1,000 MG/100 ML VIAL ONE (07:16)
--- NOTE | 2024-12-05 07:48 | NUR ---
PT NOT AVAILABLE FOR VISIT. PROVIDED PRAYER.
[2024-12-05] MEDS ORDERED: HYDROmorphone HCL 1 MG/ML SYR IV PRN (08:00)
[2024-12-05] MEDS ORDERED: PROCHLORPERAZINE EDISYLATE 10 MG/2 ML VIAL IV PRN (08:00)
[2024-12-05] MEDS ORDERED: fentaNYL citrate 50 MCG/ML SDV IV PRN (08:00)
[2024-12-05] MEDS ORDERED: NALOXONE HCL 0.4 MG SYR IV PRN (08:00)
[2024-12-05] MEDS ORDERED: KETOROLAC TROMETHAMINE 15 MG/ML VIAL ONE (08:09)
--- NOTE | 2024-12-05 08:17 | NUR ---
12/05/24 0817 Sangita Scott 0808 PT ARRIVED TO PACU WITH ORAL AIRWAY IN PLACE. RESP EVEN AND UNLABORED ON 6L VIA MASK.
[2024-12-05] MEDS ORDERED: HYDROCODONE/ACETA 5/325 TAB PO PRN (09:00)
[2024-12-05 09:08] VITALS: BP 153/80
--- NOTE | 2024-12-05 09:08 | NUR ---
PT ARRIVED BACK TO , DROWSY, BUT EASILY AROUSES WITH VERBAL STIMULI. PT NOTED TO ANSWER QUESTIONS APPROPRIATELY. PTS MOTHER IN ROOM UPON HER RETURN AND REMAINS AT BEDSIDE. REPORT RECIEVED FROM ARTIST BLACKSMITH. SURGICAL SITE VISUALIZED AND NO DRAINAGE NOTED FROM VAGINA. PT REPORTS SOME LOWER ABD CRAMPING AND RATE PAIN 3-4/10. PT PROVIDED HOT PACK TO HELP WITH PAIN MANAGEMENT AT THIS TIME. VS TAKEN. IV SITE ASSESSED. PT PROVIDED WITH PUDDING, CRACKERS, AND ICE WATER. PT DOZING ON AND OFF, AROUSES EASILY TO VERBAL STIMULI. ALL QUESTIONS ANSWERED. BED IN LOW POSITION, WHEELS LOCKED, BILAT RAILS IN PLACE, AND CALL LIGHT WITHIN PT REACH.
[2024-12-05 10:04] VITALS: BP 150/80
--- NOTE | 2024-12-05 10:08 | NUR ---
1005- PT IS SLEEPING AND WAKED TO VERBAL AND TACTILE STIMULI. PT REPORTS CRAMPING AT A 5/10, AND REPORTS "DOESN'T KNOW" WHEN ASKED IF SHE IS NAUSEOUS. PT IS TALKING WITH HER MOM AND RN, WITH EYES CLOSED. PT EATING SOME PUDDING. CALL LIGHT IN REACH. THERE IS NO DRAINAGE NOTED. LR INFUSING. BED LOCKED IN THE LOWEST POSITON.
--- NOTE | 2024-12-05 10:15 | NUR ---
PT UP TO RESTROO WITH RN ASSISTANCE. PT ABLE TO VOID APPROX 100 ML OF URINE. PT ASSISTED BACK TO ROOM. PT IN BED RESTING. BED IN LOW POSITION, WHEELS LOCKED, BILAT RAILS IN PLACE, AND CALL LIGHT WITHIN PT REACH. PT ENCOURAGED TO EAT/DRINK.
[2024-12-05 10:55] VITALS: BP 118/65
--- NOTE | 2024-12-05 11:15 | NUR ---
1050-CALL LIGHT ANSWERED. PT REPORTS PAIN IN ABD AND CRAMPING. PT RATES PAIN AT 6-7/10 AND REQUESTING PAIN MEDICATION. PT MOTHER REMAINS AT BEDSIDE. 1055-PO PAIN MEDS GIVEN PER EMAR. ROUTINE REASSESSMENT COMPLETED VSS. IV SITE ASSESSED. PT WITH SMALL AMT OF RED SPOTTING NOTED ON SHA PAD. PT DENIES NAUSEA WHEN ASKED. PT HAS TOLERATED PO FOOD AND FLUIDS WITHOUT ISSUES AND IS ASKING TO GET DRESSED. PT DRESSING WITH HER MOTHERS ASSISTANCE. PT DECLINES RN TO ASSIST WITH DRESSING. CALL LIGHT AND PERSONAL BELONGINGS WITHIN PT REACH. PTS MOTHER AT BEDSIDE TO ASSIST WITH DRSG. ALL QUESTIONS ANSWERED. 1110-INTO PTS ROOM FOR DC EDUCATION. PT PROVIDED BOTH VERBAL AND WRITTEN DISCHARGED EDUCATION WELL PROVIDED HARDCOPY RX AND F/U APPT. PT AND MOTHER VERBALIZED UNDERSTANDING AND ALL QUESTIONS WERE ANSWERED. 1115-PT REPORTS IMPROVMENT IN PAIN AND RATES AT 4/10. PT REPORTS THIS TO BE TOLERABLE AND DECLINES ANY FURTHER PAIN INTERVENTIONS AT THIS TIME. IV REMOVED. TIP APPEARS INTACT. PRESSURE DRSG APPLIED WITH GAUZE AND COBAN. PTS MOTHER LEFT TO PULL CAR AOUND TO FRONT OF HOSPITAL FOR DC HOME.
--- NOTE | 2024-12-05 11:20 | NUR ---
PT DISCHARGED FROM DS VIA WC TO PASSENGER SIDE OF MOTHERS VEHICLE. PT LEFT WITH ALL PERSONAL BELONGINGS.
--- NOTE | 2024-12-05 18:04 | OR ---
[address], [place] [address] Signed DATE OF OPERATION: 12/05/2024 SURGEON: Edgar Freitas MD PREOPERATIVE DIAGNOSIS: Menorrhagia. POSTOPERATIVE DIAGNOSIS: Menorrhagia. PROCEDURES: Diagnostic hysteroscopy, dilatation and curettage, endometrial ablation using the NovaSure device. FINDINGS: Eight week size anteverted uterus, normal uterine cavity and tubal ostia, normal cervical canal. ANESTHESIA: MAC plus local. BEVEL MILL OPERATOR: None. IV FLUIDS: 600 mL crystalloid. ESTIMATED BLOOD LOSS: 5 mL. URINE OUTPUT: 25 mL clear urine. DRAINS: None. SPECIMENS: Endometrial curettings. COUNTS: Electronically Signed By: EDGAR FREITAS MD 12/05/24 1804 PATIENT NAME: BRINA THAKKAR OPERATIVE REPORT DATE OF : [birth year] REPORT #: [id number] PHYSICIAN: EDGAR FREITAS MD PCP: ANGELIA POPE MD REPORT IS CONFIDENTIAL AND NOT TO BE RELEASED WITHOUT AUTHORIZATION [address], [place] [address] Signed Correct x2. COMPLICATIONS: None apparent. TECHNIQUE IN DETAIL: With informed consent and negative hCG patient was taken to the operating room where she was given IV sedation. She was also given 2 g of Ancef intravenously. Her lower extremities were placed in low lithotomy position using Yellofin stirrups. She underwent a brief exam under anesthesia. She was then prepped and draped in sterile fashion and time-out was performed per protocol. A speculum was placed and the cervix was visualized. A paracervical block using 0.25% Marcaine with epinephrine was given. A total of 10 mL were injected circumferentially in the cervix. A single-tooth tenaculum was then placed on the anterior lip of the cervix. The uterus was sounded and found to be 8 cm. The cervical canal was then carefully dilated using Hegar dilators to allow introduction of the hysteroscope. Using sterile saline the hysteroscope was inserted without difficulty under direct visualization and the uterine cavity was expanded with IV fluid. We got a good look of the uterine cavity and tubal ostia. No abnormalities were noted. We also got a great look of the cervical canal as we backed the hysteroscope out. Sharp curettage was then performed to obtain endometrial tissue for histopathologic sampling. This was easily obtained. We then removed the endometrial ablation device from packaging. We used the device uterine cavity measurement tool to assess the length of the uterine cavity. The device was then inserted into the uterine cavity and deployed without difficulty. Length and width measurements were inserted to the computer. Cavity assessment was performed and passed. Ablation was begun and total ablation time was 80 seconds. The device was removed without difficulty. We reinserted the hysteroscope afterwards and found an ablated intact uterine cavity. Scope was removed. Single-tooth tenaculum was removed from the anterior lip of the cervix and good hemostasis was noted. I and O catheterization of the patient's bladder was performed for the above-mentioned amount. DISPOSITION: The patient was taken to the recovery room in stable condition. Edgar Freitas MD Electronically Signed By: EDGAR FREITAS MD 12/05/24 6948 PATIENT NAME: BRINA THAKKAR OPERATIVE REPORT DATE OF : [birth year] REPORT #: [id number] PHYSICIAN: EDGAR FREITAS MD PCP: ANGELIA POPE MD REPORT IS CONFIDENTIAL AND NOT TO BE RELEASED WITHOUT AUTHORIZATION [address] [address] Signed /[facility] /[id number] Copies: ~ Electronically Signed By: EDGAR FREITAS MD 12/05/24 1804 PATIENT NAME: BRINA THAKKAR OPERATIVE REPORT DATE OF : [birth year] REPORT #: [id number] PHYSICIAN: EDGAR FREITAS MD PCP: ANGELIA POPE MD REPORT IS CONFIDENTIAL AND NOT TO BE RELEASED WITHOUT AUTHORIZATION
--- NOTE | 2024-12-09 13:18 | PATH ---
[facility] [address] [place], [place] [address] Signed SPECIMEN(S): A ENDOMETRIAL CURETTINGS SPECIMEN SOURCE: A. ENDOMETRIAL CURETTINGS CLINICAL HISTORY: Dysfunctional uterine bleeding FINAL PATHOLOGIC DIAGNOSIS: Endometrial curettings: - Proliferative endometrium, negative for hyperplasia or aytpia. JVR:[facility] MICROSCOPIC EXAMINATION: Histologic sections of all submitted blocks are examined by light microscopy. These findings, together with the gross examination, support the pathologic diagnosis. GROSS DESCRIPTION: The specimen, labeled and designated "Terri endometrial curettings," is received in formalin and consists of multiple fragments of soft osborn-red tissue and blood measuring 3.0 x 2.0 x 0.2 cm in aggregate. Entirely submitted in (A1). JS (under the direct supervision of a pathologist) The Gross Description was prepared using a voice recognition system. The report was reviewed for accuracy; however, sound-alike word errors, addition and/or deletions may occur. If there is any question about this report, please contact Client Services. PERFORMING LABORATORY: Technical component was performed by [employer], [address] [place] [id number] (CLIA# [id number]). Professional interpretation was performed by [facility], [address] [place] [id number] (CLIA#: [id number]). Diagnostician: Adelso Tang MD Pathologist Electronically Signed 12/09/2024 Copies: PATIENT NAME: BRINA THAKKAR PATHOLOGY DATE OF : [birth year] REPORT #: [id number] PHYSICIAN: [facility] PCP: ANGELIA POPE MD REPORT IS CONFIDENTIAL AND NOT TO BE RELEASED WITHOUT AUTHORIZATION [address] [address] Signed ~ PATIENT NAME: BRINA THAKKAR PATHOLOGY DATE OF : [birth year] REPORT #: [id number] PHYSICIAN: PASTORA PATHOLOGY PCP: ANGELIA POPE MD REPORT IS CONFIDENTIAL AND NOT TO BE RELEASED WITHOUT AUTHORIZATION
== END 2024-12-05 11:20 | disposition home or self-care (01) ==
LOC: DS 06:08
PROVIDERS: ATTEND Obstetrics & Gynecology
PROC: 0U5B8ZZ Destruction of Endometrium, Via Natural or Artificial Opening Endoscopic (ICD-10-PCS; principal; 2024-12-05 07:30)
DX: N92.0 Excessive and frequent menstruation with regular cycle (principal); N93.8 Other specified abnormal uterine and vaginal bleeding; I10 Essential (primary) hypertension; K21.9 Gastro-esophageal reflux disease without esophagitis; J44.9 Chronic obstructive pulmonary disease, unspecified; J45.20 Mild intermittent asthma, uncomplicated; F17.210 Nicotine dependence, cigarettes, uncomplicated; Z79.899 Other long term (current) drug therapy; Z91.048 Other nonmedicinal substance allergy status; Z98.51 Tubal ligation status
CPT/HCPCS: 00952; 88305; J0131; J0690; J2003; J2250; J2405; J2704; J3010; J7121